=== PATIENT | female | born 1960 | race Caucasian/White ===

== ENCOUNTER 2017-11-20 18:46 | Emergency (ER) | payer OTHER ==
[2015-04-09 13:02] VITALS: Wt 86.6 kg
[~2017-11-20 18:46] MED LIST: CHOL200022 PO; CHOL500045 PO; CIPR-344 PO; CYAN1TAB68 PO; CYC10 PO; DOCU-416 PO; FAMO20TA28 PO; FESO8PT PO; HYDR-385 PO; HYDR-6016 PO; IBU600 PO; IBU800 PO; IBUP600T22 PO; LEV112 PO; LEV25 PO; LOR5 PO; LOR5/325 PO; NITR50CA35 PO; ONDA4TAB PO; OXYB-13 PO; OXYC1TAB54 PO; PER PO; PRO25 PO; THYR15TA6 PO; TRAM-420 PO; TRAM-627 PO; VITA1CAP46 PO
[2017-11-20 18:56] VITALS: BP 109/83
[2017-11-20] MEDS ORDERED: TRAM-420 PO (18:59)
[2017-11-20] MEDS ORDERED: HYDROMORPHONE HCL 1 MG/ML SYRINGE IM ONE (19:00)
--- NOTE | 2017-11-20 19:00 | ER Report ---
History and Physical Time Seen By MD: 19:00 Hx. of Stated Complaint: OIL BURN ON RIGHT ARM FROM WRIST TO SHOULDER. HPI/ROS CHIEF COMPLAINT: Burned with oil HISTORY OF PRESENT ILLNESS: 57-year-old female patient presents to emergency room with complaint of burn to the right arm. Patient states she was cooking and a ball came up and hit the spoon which had hot oil in it. States the oil splashed on her, on her right arm, her right shoulder and her right breast. Patient states she has significant amounts of pain to that area. Patient did run that under cold water and then came to the emergency room for evaluation. She's noticed some blistering to the right shoulder. Patient has significant amount discomfort to the right forearm, stating that it feels like is continuing to burn. Patient has not taken any medication for this. Allergies: Coded Allergies: No Known Drug Allergies (Verified , 04/26/15) Home Meds Active Scripts Hydrocodone Bit/Acetaminophen (HYDROCODON-ACETAMINOPHEN 5-325) 1 Each Tablet, 1 EACH PO Q4-6H Y for PAIN, #6 TAB Prov:KENA PFEIFFER CHAIRMAN PRESIDENT AND CHIEF EXECUTIVE OFFICER 11/20/17 Reported Medications Tramadol Hcl (TRAMADOL HCL) 50 Mg Tablet, 50-100 MG PO Q4-6H, TAB 11/20/17 Discontinued Reported Medications Fesoterodine Fumarate (TOVIAZ) 8 Mg Tabsr, 8 MG PO DAILY 04/26/15 Nitrofurantoin Macrocrystal (NITROFURANTOIN) 50 Mg Capsule, 50 MG PO TID, CAPSULE 04/23/15 Hydrocodone Bit/Acetaminophen 7.5/300 (HYDROCODON-ACETAMINOPH 7.5-300) 1 Each Tablet, 1 EACH PO Q4-6H Y for PAIN, #30 TAB 04/11/15 Oxybutynin Chloride (DITROPAN XL) 5 Mg Tab.er.24, 5 MG PO QDAY Y for BLADDER SPASMS, #15 TAB 04/10/15 Ibuprofen (IBUPROFEN) 600 Mg Tablet, 1 TAB PO TID Y for PAIN, #50 04/10/15 Docusate Sodium (COLACE) 100 Mg Capsule, 100 MG PO BID, #30 CAPSULE 04/10/15 Famotidine (PEPCID) 20 Mg Tablet, 20 MG PO BID, #20 TAB 04/10/15 Ciprofloxacin Hcl (CIPRO) 500 Mg Tablet, 500 MG PO BID, #40 TAKE CIPRO 500 MG BID FOR 3 DAYS THEN 1/2 PILL BID THEREAFTER 04/10/15 Discontinued Scripts Hydrocodone Bit/Acetaminophen (HYDROCODON-ACETAMINOPHEN 5-325) 1 Each Tablet, 1 EACH PO Q4-6H for PAIN, #2 TAKE ONE TABLET BY MOUTH EVERY 4-6 HOURS NEEDED FOR PAIN Prov:DORY FONSECA MD 04/26/15 Past Medical/Surgical History Patient has a past medical history of brain injury, migraines, hyperlipidemia, occasionally smokes, slight incontinence, Achilles tendon rupture, right arm fracture. Patient has a past surgical history of tonsillectomy, tubes in ears, Achilles tendon repair, knee surgery, hysterectomy, colonoscopy. Reviewed Nurses Notes: Yes Hx Smoking: No (stress smoker-2 cig daily for 2 yrs) Smoking Status: Former Smoker, Current: Some Days Smoker Exposure to Second Hand Smoke?: No Hx Substance Use Disorder: No Hx Alcohol Use: No Constitutional Vital Sign - Last 24 Hours 11/20/17 18:56 Temp 98.8 Pulse 88 Resp 18 B/P (MAP) 109/83 Pulse Ox 96 O2 Delivery Room Air Physical Exam General appearance: Alert no distress. Respiratory: Chest is non tender, lungs are clear to auscultation. Cardiac: Regular rate and rhythm. Skin: Patient has redness to the lateral aspect of the right forearm, some blisters to the right shoulder, some redness to the right breast. There is no circumferential dumont. I do the appear to be superficial dumont with one partial thickness burn on the shoulder. DIFFERENTIAL DIAGNOSIS: After history and physical exam differential diagnosis was considered for superficial burn and partial-thickness burn. Medical Decision Making ED Course/Re-evaluation ED Course Patient was admitted to an exam room, history and physical were obtained. Differential diagnoses were considered. On examination patient does have some redness to the right forearm, is not circumferential, it is just on the lateral aspect. Patient has some redness to her breast as well as blistering to the right shoulder. I discussed with patient that this is going to burn, that the dumont are superficial, and will resolve on their own. However they will be uncomfortable. The shoulder I did explain was more concerning as it could become infected due to the sloughing of the blister. The blister was popped and drained. The area was then covered with Silvadene. Patient will be discharged home at this time with a limited supply of pain medication and Silvadene to apply twice a day to the shoulder. I anticipate she's been feeling much better tomorrow morning. She is return to emergency room if condition worsens. She is to follow up with her primary care provider next week. Patient states that she feels significant improvement at this time. Patient verbalized understanding and agreement with plan. Decision to Disposition Date: Nov 20, 2017 Decision to Disposition Time: 20:07 Depart Departure Latest Vital Signs Vital Signs Date Time Temp Pulse Resp B/P (MAP) Pulse Ox O2 Delivery O2 Flow Rate FiO2 11/20/17 18:56 98.8 88 18 109/83 96 Room Air Impression: Primary Impression: Burn (any degree) involving 10-19% of body surface Condition: Improved Disposition: HOME OR SELF-CARE Referrals: JOSTIN LEBLANC MD (PCP) New Scripts Hydrocodone Bit/Acetaminophen (HYDROCODON-ACETAMINOPHEN 5-325) 1 Each Tablet 1 EACH PO Q4-6H Y for PAIN, #6 TAB Prov: KENA PFEIFFER 11/20/17 Patient Instructions: Second Degree Burn (ED) Additional Instructions: Apply ice to the arm for 10-15 minutes several times a day. Take Ibuprofen as needed for pain. You may take some pain medication as needed for pain as well. Apply the Silvadene cream to your arm twice a day for 7 days. Return to the ER if condition worsens. Follow up with your primary care provider in the next week. KENA PFEIFFER Nov 20, 2017 19:00
[2017-11-20] MEDS ORDERED: SILVER sulfADI 1% CR 20GM TB TP ONE (19:20)
[2017-11-20] MEDS ORDERED: ACET/HYDROC 5/325MG TH ER ONLY 2 TAB/BOTTLE PO ONE (20:05)
[2017-11-20] MEDS ORDERED: HYDR-385 PO (20:14)
== END 2017-11-20 20:19 | disposition home or self-care (01) ==
LOC: ER 18:50
DX: T22.011A Burn of unspecified degree of right forearm, initial encounter (principal); T22.051A Burn of unspecified degree of right shoulder, initial encounter; T21.01XA Burn of unspecified degree of chest wall, initial encounter; T31.11 Burns involving 10-19% of body surface with 10-19% third degree burns; E78.5 Hyperlipidemia, unspecified; X10.2XXA Contact with fats and cooking oils, initial encounter; Y93.G3 Activity, cooking and baking; Z87.891 Personal history of nicotine dependence; Z79.899 Other long term (current) drug therapy
CPT/HCPCS: 16020; 96372; 99283; J1170

== ENCOUNTER → 2018-02-18 | Outpatient (CLI) | payer OTHER ==
[2015-04-09 13:02] VITALS: BMI 48.0
[~2018-02-18] MED LIST changes: +CHOL200018 PO; -CHOL200022 PO
--- NOTE | 2018-02-21 16:11 | RADIOLOGY IMAGING REPORT ---
FACILITY: [facility] PATIENT NAME: LIANG CAMACHO : [id number] MR: [id number] V: [id number] EXAM DATE: [id number] ORDERING PHYSICIAN: JOSTIN LEBLANC TECHNOLOGIST: Lexi Bazzi PROCEDURE:BILATERAL DIGITAL SCREENING MAMMOGRAM WITH CAD ASSISTED INTERPRETATION & 3D TOMOSYNTHESIS COMPARISON:Prior mammograms 01/21/17, 12/02/15. INDICATIONS:SCREENING FINDINGS: The breasts are almost entirely fatty. No suspicious mass, microcalcification or architectural distortion. No change compared to priors. DIAGNOSTIC CATEGORY 1--NEGATIVE. RECOMMENDATIONS: ROUTINE MAMMOGRAM AND CLINICAL EVALUATION. IMPRESSION: BIRADS 1: Negative. Dictated by: Ronak Stratton on 02/21/2018 at 9:23 Transcribed by: JEN on 02/21/2018 at 9:58 Approved by: Ronak Stratton on 02/21/2018 at 16:10 [facility]
== END ==
LOC: MAMO 00:36
PROVIDERS: ATTEND Family Medicine
DX: Z12.31 Encounter for screening mammogram for malignant neoplasm of breast (principal)
CPT/HCPCS: 77063; 77067

== ENCOUNTER 2018-05-24 08:04 | Emergency (ER) | payer OTHER ==
[2015-04-09 13:02] VITALS: Wt 102.1 kg
[2018-05-24] MEDS ORDERED: LOSA-57 PO (08:15)
[2018-05-24] MEDS ORDERED: ATOR-1 PO (08:15)
[2018-05-24] MEDS ORDERED: ASPIRIN 81 MG CHEW PO ONE (08:30)
--- NOTE | 2018-05-24 08:34 | ER Report ---
History and Physical Time Seen By MD: 08:31 Hx. of Stated Complaint: LEFT CHEST PAIN STARTED APPROX 0620 WHILE WORKING OUT HPI/ROS CHIEF COMPLAINT: Left-sided chest pain HISTORY OF PRESENT ILLNESS: Patient is a 58-year-old female who states she was at the gym this morning around 6:20 working out was actually using this machine when she started to notice some left-sided chest pain that she describes as "unusual". She does have a family history on her bother side of heart attack in her cousin 3 years ago from a massive heart attack. Patient does have hypercholesterolemia and hypertension but denies diabetes. Denies known history of coronary artery disease. She does smoke occasionally. She denies any fevers or chills. Patient states that the pain lasted for about an hour and then resolved spontaneously. He denied any other radiation the pain but points to the left chest area as the location of discomfort. She is currently symptom-free. REVIEW OF SYSTEMS: Constitutional: No fever, no chills. Eyes: No discharge. ENT: No sore throat. Cardiovascular: Sided chest pain Respiratory: No cough, no shortness of breath. Gastrointestinal: No abdominal pain, no vomiting. Genitourinary: No hematuria. Musculoskeletal: No back pain. Skin: No rashes. Neurological: No headache. Allergies: Coded Allergies: No Known Drug Allergies (Verified , 05/24/18) Home Meds Reported Medications Atorvastatin Calcium (ATORVASTATIN CALCIUM) 80 Mg Tablet, 1 TAB PO DAILY 05/24/18 Losartan/Hydrochlorothiazide (LOSARTAN-HCTZ 100-12.5 MG TAB) 1 Each Tablet, 1 TAB PO DAILY 05/24/18 Tramadol Hcl (TRAMADOL HCL) 50 Mg Tablet, 100 MG PO BID, TAB 11/20/17 Discontinued Scripts Hydrocodone Bit/Acetaminophen (HYDROCODON-ACETAMINOPHEN 5-325) 1 Each Tablet, 1 EACH PO Q4-6H PRN for PAIN, #6 TAB Prov:KENA PFEIFFER SQL CONSULTANT 11/20/17 Past Medical/Surgical History Patient has a past medical history of brain injury, migraines, hyperlipidemia, occasionally smokes, slight incontinence, Achilles tendon rupture, right arm fracture. Hypertension Patient has a past surgical history of tonsillectomy, tubes in ears, Achilles tendon repair, knee surgery, hysterectomy, colonoscopy. Hx Smoking: No (stress smoker-2 cig daily for 2 yrs) Smoking Status: Former Smoker, Current: Some Days Smoker Exposure to Second Hand Smoke?: No Hx Substance Use Disorder: No Hx Alcohol Use: No Constitutional Vital Sign - Last 24 Hours 05/24/18 05/24/18 05/24/18 05/24/18 08:10 08:30 08:48 09:00 Temp 98.2 Pulse 80 71 66 Resp 16 B/P (MAP) 150/102 150/102 (118) 126/88 (101) Pulse Ox 90 94 89 O2 Delivery Room Air Nasal Cannula Nasal Cannula O2 Flow Rate 1 2.0 1 05/24/18 05/24/18 05/24/18 09:30 10:00 10:30 Pulse 65 53 55 B/P (MAP) 123/86 (98) 131/71 (91) 123/85 (98) Pulse Ox 97 96 91 Physical Exam General/Constitutional: Patient is awake, alert, nontoxic and in no acute respiratory distress. Patient with elevated BMI Head: Normocephalic and atraumatic. Eyes: Conjunctival clear, Pupils are equal and reactive to light. Extraocular muscles are intact and symmetrical. Sclera are clear and anicteric. Nares: No rhinorrhea or bleeding. Turbinates are pink and moist. Neck: Supple, no adenopathy. Cardiovascular: Heart is regular rate and rhythm without audible murmurs, rubs or gallops. Pulmonary: Lungs are clear to auscultation bilaterally. There are no wheezes, rales, or rhonchi. Chest rise is symmetrical Abdomen: Soft, nontender, no guarding or peritoneal signs. Extremities: No gross deformities, No peripheral cyanosis. Able to move all 4 extremities. Neuro: Alert and oriented X3, Skin: No rashes, skin is warm dry and well perfused. Medical Decision Making Data Points Result Diagram: 05/24/1818 05/24/18 0818 Laboratory Hematology Test 05/24/18 08:18 05/24/18 12:09 Red Blood Count 4.89 M/uL (4.17-5.56) Mean Corpuscular Volume 92.1 fL (80.0-96.0) Mean Corpuscular Hemoglobin 30.8 pg (26.0-33.0) Mean Corpuscular Hemoglobin Concent 33.5 g/dL (32.0-36.0) Red Cell Distribution Width 13.7 % (11.5-14.5) Mean Platelet Volume 10.2 fL (7.2-11.1) Neutrophils (%) (Auto) 64.1 % (39.4-72.5) Lymphocytes (%) (Auto) 27.2 % (17.6-49.6) Monocytes (%) (Auto) 5.9 % (4.1-12.4) Eosinophils (%) (Auto) 2.0 % (0.4-6.7) Basophils (%) (Auto) 0.8 % (0.3-1.4) Nucleated RBC Relative Count (auto) 0.0 /100WBC Neutrophils # (Auto) 6.1 K/uL (2.0-7.4) Lymphocytes # (Auto) 2.6 K/uL (1.3-3.6) Monocytes # (Auto) 0.6 K/uL (0.3-1.0) Eosinophils # (Auto) 0.2 K/uL (0.0-0.5) Basophils # (Auto) 0.1 K/uL (0.0-0.1) Nucleated RBC Absolute Count (auto) 0.00 K/uL Prothrombin Time 12.4 seconds (12.0-14.4) Prothromb Time International Ratio 0.93 Activated Partial Thromboplast Time 35 seconds (23-35) Sodium Level 139 mmol/L (137-145) Potassium Level 3.8 mmol/L (3.5-5.0) Chloride Level 103 mmol/L (98-107) Carbon Dioxide Level 33 mmol/L (22-31) Blood Urea Nitrogen 14 mg/dl (7-18) Creatinine 0.80 mg/dl (0.52-1.04) Glomerular Filtration Rate Calc > 60.0 Random Glucose 143 mg/dl (75-110) Calcium Level 9.8 mg/dl (8.4-10.2) Total Bilirubin 0.7 mg/dl (0.2-1.3) Aspartate Amino Transf (AST/SGOT) 26 U/L (0-35) Alanine Aminotransferase (ALT/SGPT) 30 U/L (0-56) Alkaline Phosphatase 86 U/L (0-126) Total Protein 7.4 g/dl (6.3-8.2) Albumin 4.2 g/dl (3.5-5.0) Troponin I < 0.012 ng/ml Chemistry Test 05/24/18 08:18 05/24/18 12:09 White Blood Count 9.5 k/uL (4.5-11.0) Red Blood Count 4.89 M/uL (4.17-5.56) Hemoglobin 15.1 g/dL (12.0-16.0) Hematocrit 45.1 % (34.0-47.0) Mean Corpuscular Volume 92.1 fL (80.0-96.0) Mean Corpuscular Hemoglobin 30.8 pg (26.0-33.0) Mean Corpuscular Hemoglobin Concent 33.5 g/dL (32.0-36.0) Red Cell Distribution Width 13.7 % (11.5-14.5) Platelet Count 262 K/uL (150-450) Mean Platelet Volume 10.2 fL (7.2-11.1) Neutrophils (%) (Auto) 64.1 % (39.4-72.5) Lymphocytes (%) (Auto) 27.2 % (17.6-49.6) Monocytes (%) (Auto) 5.9 % (4.1-12.4) Eosinophils (%) (Auto) 2.0 % (0.4-6.7) Basophils (%) (Auto) 0.8 % (0.3-1.4) Nucleated RBC Relative Count (auto) 0.0 /100WBC Neutrophils # (Auto) 6.1 K/uL (2.0-7.4) Lymphocytes # (Auto) 2.6 K/uL (1.3-3.6) Monocytes # (Auto) 0.6 K/uL (0.3-1.0) Eosinophils # (Auto) 0.2 K/uL (0.0-0.5) Basophils # (Auto) 0.1 K/uL (0.0-0.1) Nucleated RBC Absolute Count (auto) 0.00 K/uL Prothrombin Time 12.4 seconds (12.0-14.4) Prothromb Time International Ratio 0.93 Activated Partial Thromboplast Time 35 seconds (23-35) Glomerular Filtration Rate Calc > 60.0 Calcium Level 9.8 mg/dl (8.4-10.2) Total Bilirubin 0.7 mg/dl (0.2-1.3) Aspartate Amino Transf (AST/SGOT) 26 U/L (0-35) Alanine Aminotransferase (ALT/SGPT) 30 U/L (0-56) Alkaline Phosphatase 86 U/L (0-126) Total Protein 7.4 g/dl (6.3-8.2) Albumin 4.2 g/dl (3.5-5.0) Troponin I < 0.012 ng/ml Coagulation Test 05/24/18 08:18 Prothrombin Time 12.4 seconds Prothromb Time International Ratio 0.93 Activated Partial Thromboplast Time 35 seconds EKG/Imaging EKG Interpretation EKG shows normal sinus rhythm with ventricular heart rate of [address] segment or T-wave abnormalities noted. Monitor Interpretation: Normal Sinus Rhythm Imaging FACILITY: [facility] PATIENT NAME: Maribell Costello : 1960 MR: [id number] V: [id number] EXAM DATE: ORDERING PHYSICIAN: ARELI REDDY TECHNOLOGIST: Location: [facility] Patient: Maribell Costello : 1960 Visit/Account:[id number] Date of Sevice: 05/24/2018 CHEST PA LAT History: Chest Pain FINDINGS: Comparison studies: 07/27/2008 chest x-ray Tubes and Lines: None. Lungs and pleura: Well aerated. No evidence of focal consolidation or pleural effusions. Mediastinum: normal. Cardiac silhouette: normal . Osseous structures: Unremarkable for age . IMPRESSION: Normal chest Report Dictated By: Shawn Gallagher MD at 05/24/2018 9:17 AM Report E-Signed By: Shawn Gallagher MD at 05/24/2018 9:19 AM WSN:[email or web address] ED Course/Re-evaluation Clinical Indication for ER IV: IV Access ED Course 05/24/2018 8:33:58 am plan at this time will be cardiac workup patient is currently symptom-free. We'll give aspirin. We'll repeat a 4 hour troponin. Re-evaluation 05/24/2018 12:35:53 pm repeat troponin negative will discharge home. Decision to Disposition Date: May 24, 2018 Decision to Disposition Time: 12:36 Depart Departure Latest Vital Signs Vital Signs Date Time Temp Pulse Resp B/P (MAP) Pulse Ox O2 Delivery O2 Flow Rate FiO2 05/24/18 10:30 55 123/85 (98) 91 05/24/18 09:00 Nasal Cannula 1 05/24/18 08:10 98.2 16 Impression: Primary Impression: Non-cardiac chest pain Condition: Improved Disposition: HOME OR SELF-CARE Referrals: JOSTIN LEBLANC MD (PCP) make a follow up appointment in the next 2-4 weeks for reevaluation of chest pain Patient Instructions: Noncardiac Chest Pain (ED) Additional Instructions: Return to the emergency department immediately if you have recurrent severe chest pain and/or shortness of breath. ARELI REDDY MD May 24, 2018 08:34
[2018-05-24 08:36] LABS: PLATELET COUNT, AUTOMATED 262 K/uL (150-450)
[2018-05-24 08:42] LABS: INR 0.93
--- NOTE | 2018-05-24 09:24 | RADIOLOGY IMAGING REPORT ---
FACILITY: [facility] PATIENT NAME: Maribell Costello : 1960 MR: [id number] V: [id number] EXAM DATE: ORDERING PHYSICIAN: ARELI REDDY TECHNOLOGIST: Location: [facility] Patient: Maribell Costello : 1960 Visit/Account:[id number] Date of Sevice: 05/24/2018 CHEST PA LAT History: Chest Pain FINDINGS: Comparison studies: 07/27/2008 chest x-ray Tubes and Lines: None. Lungs and pleura: Well aerated. No evidence of focal consolidation or pleural effusions. Mediastinum: normal. Cardiac silhouette: normal . Osseous structures: Unremarkable for age . IMPRESSION: Normal chest Report Dictated By: Shawn Gallagher MD at 05/24/2018 9:17 AM Report E-Signed By: Shawn Gallagher MD at 05/24/2018 9:19 AM WSN:[email or web address]
--- NOTE | 2018-05-24 09:53 | EKG ---
[place] [facility] [place] NAME: LIANG CAMACHO : [id number] MR: [id number] V: [id number] EXAM DATE: ORDERING PHYSICIAN: ARELI REDDY TECHNOLOGIST: DOUGLAS Davies Reason : CP Blood Pressure : / mmHG Vent. Rate : 082 BPM Atrial Rate : 082 BPM P-R Int : 152 ms QRS Dur : 100 ms QT Int : 370 ms P-R-T Axes : 066 011 037 degrees QTc Int : 432 ms Normal sinus rhythm Normal ECG When compared with ECG of 02-APR-2015 13:33, Questionable change in QRS axis Confirmed by Louis Solis ([id number]) on 05/24/2018 9:44:01 PM Referred By: MAUREEN Confirmed By:Louis Yoo
[2018-05-24 12:00] VITALS: BP 106/67
== END 2018-05-24 12:49 | disposition home or self-care (01) ==
LOC: ER 08:45
DX: R07.89 Other chest pain (principal)
CPT/HCPCS: 36415; 71046; 82040; 82247; 82310; 82374; 82435; 82565; 82947; 84075; 84132; 84155; 84295; 84450; 84460; 84484; 84520; 85025; 85610; 85730; 93005; 99284

== ENCOUNTER → 2018-10-14 | Outpatient (CLI) | payer OTHER ==
[2015-04-09 13:02] VITALS: BMI 48.0
[~2018-10-14] MED LIST changes: +ATOR-1 PO; +LOSA-57 PO
--- NOTE | 2018-10-14 08:44 | RADIOLOGY IMAGING REPORT ---
FACILITY: [facility] PATIENT NAME: Maribell Costello : 1960 MR: [id number] V: [id number] EXAM DATE: ORDERING PHYSICIAN: JOSTIN LEBLANC TECHNOLOGIST: Location: [facility] Patient: Maribell Costello : 1960 Visit/Account:[id number] Date of Sevice: 10/14/2018 Exam type: XR THORACIC SPINE 3 V History: Thoracic spine pain x2 months, no known injury Comparison: None. Findings: There mild multilevel spondylotic changes of the thoracic spine. There is no evidence of acute fract ures or subluxations. IMPRESSION: 1. Mild multilevel spondylotic changes of the thoracic spine. If patient's pain continues MR may be helpful Report Dictated By: Jenny Martinez MD at 10/14/2018 8:36 AM Report E-Signed By: Jenny Martinez MD at 10/14/2018 8:38 AM WSN:[email or web address]
== END ==
LOC: RAD 08:07
PROVIDERS: ATTEND Family Medicine
DX: M47.814 Spondylosis without myelopathy or radiculopathy, thoracic region (principal)
CPT/HCPCS: 72072